=== PATIENT | female | born 1950 ===

== ENCOUNTER 2017-03-27 10:05 | Day surgery (SDC) | payer MEDICARE, MEDICAID ==
[2017-03-19 12:17] VITALS: BMI 29.7
[2017-03-27] MEDS ORDERED: Midazolam 2 MG/2 ML VIAL ONE ×3 (13:33→13:57)
[2017-03-27] MEDS ORDERED: Lidocaine 2% Inj (20ml) ONE (13:33)
[2017-03-27] MEDS ORDERED: Iodixanol 320 MG/ML 200 ML BOTTLE IV ONE (13:34)
[2017-03-27] MEDS ORDERED: Iodixanol 320 MG/ML 100 ML BOTTLE IV ONE (13:35)
[2017-03-27] MEDS ORDERED: Propofol 10 mg/ml Inj (20 ML) ONE ×2 (13:59→14:47)
[2017-03-27] MEDS ORDERED: Ketamine 50 mg/ml Inj (10 ml) ONE (14:17)
[2017-03-27] MEDS ORDERED: Albuterol 0.083% Inhal Sol (2.5 mg/3 mL) UD INH PRN (15:18)
--- NOTE | 2017-03-27 15:19 | PCM.SURG1 ---
Surgeon's Initial Post Op Note - Surgeon's Notes Surgeon: Dr. Brooke Insurance Compliance Analyst: Chris PGY1 Type of Anesthesia: IV Sedation Pre-Operative Diagnosis: Peripheral artery Disease Operative Findings: see operative report Post-Operative Diagnosis: Peripheral Artery Disease Operation Performed: Aortofemoral Angiogram with bilateral run-off, selective catheterization of right femoral artery, pathway artherectomy, and drug coated balloon angioplasty Specimen/Specimens Removed: N/A Estimated Blood Loss: EBL {In ML}: 20 Blood Products Given: N/A Drains Used: No Drains Post-Op Condition: Good Date of Surgery/Procedure: 03/27/17 Time of Surgery/Procedure: 15:19
[2017-03-27 17:29] VITALS: BP 137/59; PULSE 94; RESP 14; TEMP 97.5; O2SAT 97
--- NOTE | 2017-03-28 09:15 | VAS ---
PROCEDURE DATE: 03/27/2017 PREOPERATIVE DIAGNOSIS: Claudication, right leg. POSTOPERATIVE DIAGNOSIS: Claudication, right leg. PROCEDURE CARRIED OUT: Aorto femoral angiogram with bilateral runoff with selective catheterization of right femoral artery, pathway atherectomy of right femoral artery and balloon angioplasty using Lutonix drug coated balloon, 4 mm. SURGEON: Bean Brooke Jr., MD MEDIA MARKETING SPECIALIST: None. ANESTHESIOLOGIST: Allyn Ayoub CRNA INDICATIONS: A 67-year-old woman with history of previous stents in the left leg presenting with increasing claudication in the right leg. OPERATIVE FINDINGS: The aorta and renal arteries are free of significant occlusive disease, both common external iliac and internal iliac arteries were widely patent; although, somewhat small and some diffused narrowing in the left common iliac artery. Below this, the common femoral arteries were widely patent. The superficial femoral arteries were widely patent in their proximal segment in the left side, the multiple stents were placed in the left superficial femoral artery which were patent. Below this, there was a good runoff via three vessels into the foot. On the right side, there was a similar pattern, but a high grade 90% stenosis at approximately 3 inches below the bifurcation of the superficial femoral artery and the profunda. There was also a slightly erratic period above Mil's canal. Subsequent to the performance of the diagnostic arteriogram, a stiff-angled Glidewire was advanced over the aortic bifurcation. Patient was heparinized after the lesion was crossed and a peripheral atherectomy device was used to atherectomize the proximal portion of the superficial femoral artery. The distal abnormality was not treated. Subsequently, a 4 mm balloon was deployed here at two locations and there is residual brisk flow, slight element of dissection to the large size of the balloon due to the vessel but otherwise brisk flow with good runoff. Again, there is 3-vessel runoff below this. Subsequent to the performance of the diagnostic arteriogram, the above-mentioned procedure was carried out. A Perclose device was deployed in the left groin and there is still good perfusion distally after this deployment. OPERATION CARRIED OUT: 1. Aorto femoral angiogram with selective catheterization of right femoral artery. 2. Pathway atherectomy and drug-coated balloon angioplasty using 4-mm balloon of the proximal superficial femoral artery. Bean Brooke Jr., MD
== END 2017-03-27 17:35 | disposition home or self-care (01) ==
LOC: C.SPRAD 10:05
PROVIDERS: ATTEND Surgery Vascular Surgery
DX: I70.218 Atherosclerosis of native arteries of extremities with intermittent claudication, other extremity (principal)
CPT/HCPCS: 36247; 37225; 75625; 75716; 75774; 82948; C1724; C1760; C1766; C1769; C1887; C1894; J1644; J2250; J2704; J3010; Q9966; Q9967

== ENCOUNTER 2017-12-22 11:46 | Inpatient (IN) | payer MEDICARE, MEDICAID ==
[2017-12-22 11:46] VITALS: BMI 29.7
[2017-12-22] MEDS ORDERED: Sodium Chloride 0.9% 1,000 ML IV ONE (12:21)
[2017-12-22 12:37] LABS: BASO # 0.1 K/uL (0.0-0.2); BASO % 1.4 % (0.0-2.0); EOS # 0.1 K/uL (0.0-0.7); EOS % 0.9 % (0.0-4.0); LYMPH # 1.8 K/uL (1.0-4.3); MEAN CORPUSCULAR HEMOGLOBIN 20.7 pg (27.0-31.0); MEAN CORPUSCULAR HGB CONC 31.1 g/dL (33.0-37.0); MEAN PLATELET VOLUME 7.3 fL (7.2-11.7); MONO # 0.5 K/uL (0.0-0.8); MONO % 5.9 % (0.0-10.0); NEUT # 5.8 K/uL (1.8-7.0); NEUT % 69.8 % (50.0-75.0); NRBC % 0.1 % (0.0-2.0); RBC 3.12 Mil/uL (3.80-5.20); WHITE BLOOD COUNT 8.2 K/uL (4.8-10.8)
--- NOTE | 2017-12-22 12:41 | C.PDOC ---
History Of Present Illness 67 year old female presents to the ED after being sent by her PMD for evaluation of abnormal labs. Patient states she received a call stating that her labs show low hemoglobin level of 5 g/dL. Patient reports history of anemia and states she takes iron supplements. Patient admits to feeling weak, tired and easily fatigued. She also reports constipation (due to taking iron supplements) and states her last bowel movement was yesterday. Patient reports history of arthritis and states she gets occasional joint pain. Patient denies fever, chills. Time Seen by Provider: 12/22/17 12:02 Chief Complaint (Nursing): Abnormal Labs History Per: Patient History/Exam Limitations: no limitations Onset/Duration Of Symptoms: Hrs Current Symptoms Are (Timing): Still Present Additional History Per: Patient Past Medical History Reviewed: Historical Data, Nursing Documentation, Vital Signs Vital Signs: Last Vital Signs Temp 97.9 F 12/22/17 14:19 Pulse 92 H 12/22/17 14:19 Resp 18 12/22/17 14:19 BP 105/57 L 12/22/17 14:19 Pulse Ox 97 12/22/17 14:19 - Medical History PMH: Anemia, Asthma, Cardia Arrhythmia, Colonic Polyps, Gall Bladder Disease, HTN, Hypercholesterolemia, Hypothyroidism, Peripheral Edema, Rheumatoid Arthritis Surgical History: Appendectomy, Endoscopy - [facility] Procedures ANGIOPLASTY OF OTHER NON-CORONARY VESSEL(S) (03/04/14) ATHERECTOMY OF OTHER NON-CORONARY VESSEL(S) (03/04/14) INJECT/INFUSE NEC (07/14/13) NEBULIZER THERAPY (07/14/13) PROCEDURE ON SINGLE VESSEL (03/04/14) Family History: States: Unknown Family Hx - Social History Hx Alcohol Use: No Hx Substance Use: No - Immunization History Hx Influenza Vaccination: Yes Hx Pneumococcal Vaccination: No Review Of Systems Constitutional: Positive for: Weakness, Other (tired, easily fatigued, low hemoglobin level ). Negative for: Fever, Chills Physical Exam - Physical Exam Appears: Non-toxic, No Acute Distress Skin: Warm, Dry, Pale, No Rash Head: Atraumatic, Normacephalic Eye(s): bilateral: Normal Inspection, EOMI Oral Mucosa: Moist Neck: Supple Chest: Symmetrical, No Deformity, No Tenderness Cardiovascular: Rhythm Regular (tachycardic), No Murmur Respiratory: Normal Breath Sounds, No Rales, No Rhonchi, No Wheezing Gastrointestinal/Abdominal: Soft, No Tenderness, No Guarding, No Rebound Extremity: Normal ROM, Capillary Refill (less than 2 seconds ) Neurological/Psych: Oriented x3, Normal Speech Gait: Steady ED Course And Treatment - Laboratory Results Result Diagrams: 12/22/17 12:33 12/22/17 12:33 Lab Interpretation: No Acute Changes ECG: Interpreted By Me, Viewed By Me ECG Rhythm: Sinus Rhythm Rate From EC O2 Sat by Pulse Oximetry: 98 (on RA) Pulse Ox Interpretation: Normal Medical Decision Making Medical Decision Making: Impression: 67 year old female with low hemoglobin level, weakness Plan: * bloodwork * urinalysis * IV Fluids Progress: Bloodwork and urinalysis ordered. Patient given IV Fluids. 1250: Patient's lab results show hemoglobin level of 6.5 g/dL. I discussed this result with the patient and she verbalizes understanding. I discussed plan for blood transfusion with patient. She understands this treatment, but chooses to decline and does not want blood products at this time. Plan is to give IV Ferrlecit and observe patient. She agrees with admission 1325 Spoke with medicine organisational psychologist Dr Borja to discuss case and accepted patient to service Disposition - Disposition Disposition Time: 13:30 Condition: STABLE - POA Present On Arrival: None - Clinical Impression Clinical Impression: Anemia - PA / AUTOMOBILE RENTAL CLERK / Resident Statement MD/DO has reviewed & agrees with the documentation as recorded. - Scribe Statement The provider has reviewed the documentation as recorded by the Scribe (Jennifer Rosen) All medical record entries made by the Scribe were at my direction and personally dictated by me. I have reviewed the chart and agree that the record accurately reflects my personal performance of the history, physical exam, medical decision making, and the department course for this patient. I have also personally directed, reviewed, and agree with the discharge instructions and disposition. Decision To Admit - Pt Status Changed To: Hospital Disposition Of: Observation - . Bed Request Type: Telemetry Admitting Physician: Alisa Borja Patient Diagnosis: Anemia
[2017-12-22 12:42] LABS: HEMOGLOBIN 6.5 g/dL (11.0-16.0)
[2017-12-22 12:43] LABS: MEAN CELL VOLUME 66.6 fL (81.0-99.0)
[2017-12-22 12:49] LABS: ALB/GLOB RATIO 1.4 (1.0-2.1); ALBUMIN 4.2 g/dL (3.5-5.0); ALT/SGPT 29 U/L (9-52); AST/SGOT 26 U/L (14-36); BLOOD UREA NITROGEN 9 mg/dL (7-17); CALCIUM 8.5 mg/dl (8.6-10.4); GFR AFRICAN-AMERICAN > 60; GFR NON-AFRICAN AMERICAN > 60
[2017-12-22 12:50] LABS: PROTHROMBIN TIME 11.3 SECONDS (9.7-12.2)
[2017-12-22] MEDS ORDERED: Ferric Sodium Gluconat Complex 62.5 mg/5 ml Vial IVPB STA (13:00)
[2017-12-22] MEDS ORDERED: Sodium Chloride 0.9% 1,000 ML ONE (13:29)
[2017-12-22 14:20] LABS: IRON 98 ug/dL (37-170)
[2017-12-22 14:29] LABS: % IRON SATURATION 19 (20-55); TOTAL IRON BINDING CAPACITY 512 ug/dL (250-450)
[2017-12-22 15:05] LABS: SQUAMOUS EPITHIAL < 1 /hpf (0-5); URINE BILIRUBIN NEGATIVE (NEGATIVE); URINE BLOOD NEGATIVE (NEGATIVE); URINE CLARITY Clear (Clear); URINE COLOR Straw (YELLOW); URINE GLUCOSE (UA) NORMAL (Normal); URINE LEUKOCYTE ESTERASE TRACE Leu/uL (Negative); URINE PROTEIN NEGATIVE (NEGATIVE); URINE UROBILINOGEN NORMAL mg/dL (0.2-1.0)
[2017-12-22] MEDS: (Novolin R) Insulin Human Regular 100 units/ml vial SC SCH ×2 (16:52→22:40)
[2017-12-22] MEDS: Hydrocortisone 2.5% Rectal Cream(30 gm) PR SCH (17:00)
[2017-12-22] MEDS ORDERED: CYCLOSPORINE OU SCH (18:00)
[2017-12-22] MEDS ORDERED: Albuterol 0.042% Inhal Sol (1.25 mg/3 mL) UD INH SCH (18:00)
[2017-12-22] MEDS: Cilostazol 100 mg Tab UD PO SCH (18:15)
[2017-12-22] MEDS: Albuterol 0.042% Inhal Sol (1.25 mg/3 mL) UD INH SCH (20:05)
[2017-12-22] MEDS ORDERED: Home Med 1 UNIT PO SCH ×2 (21:00)
[2017-12-23] MEDS: Levothyroxine 125 MCG TAB PO SCH ×2 (06:30→10:12)
[2017-12-23] MEDS: Albuterol 0.042% Inhal Sol (1.25 mg/3 mL) UD INH SCH (07:46)
[2017-12-23] MEDS: (Novolin R) Insulin Human Regular 100 units/ml vial SC SCH ×4 (07:59→21:35)
[2017-12-23] MEDS ORDERED: Pantoprazole 40 mg EC Tab PO SCH (10:00)
[2017-12-23] MEDS: Insulin Detemir 100 units/ml Vial (Levemir) SC SCH (10:08)
[2017-12-23] MEDS: Fluticasone Nasal 50 mcg/Spray NAS SCH (10:09)
[2017-12-23] MEDS: Ferric Sodium Gluconat Complex 62.5 mg/5 ml Vial IVPB SCH (10:09)
[2017-12-23] MEDS: Hydrocortisone 2.5% Rectal Cream(30 gm) PR SCH ×2 (10:10→17:45)
[2017-12-23] MEDS: Cilostazol 100 mg Tab UD PO SCH ×2 (10:45→17:43)
--- NOTE | 2017-12-23 11:15 | CP.PCM.CON ---
<Dee Dee Gentile - Last Filed: 12/23/17 11:17> History of Present Illness - History of Present Illness History of Present Illness: GI Fellow PGY4 Consult Note This is a 67 year old female with pmhx of PAD s/p angioplasty on plavix and pletal, iron deficinecy anemia on po iron, HTN, HLD presents to the ED after being sent by her PMD for evaluation of abnormal labs. Patient states she received a call stating that her labs showed low hemoglobin level of 5 g/dL. Patient reports history of anemia and states she takes iron supplements. She denies any prior transfusions and never a Hgb this low. Patient admits to feeling weak, tired and easily fatigued. She also reports constipation due to taking iron supplements and states her last bowel movement was yesterday. Patient reports history of arthritis and states she gets occasional joint pain for which she takes NSAID once a week. In the ER pts Hgb was 6.5 and pt refused blood transfusion due to concern for contamination/infection with blood products. She denies any active rectal bleeding or prior GI bleed hx. She does report hx of EGD/Colonoscopy many years ago at [facility] [place] and found to have polyps. ROS: A 12pt ROS was negative except as above PmHX: As stated n [facility] PsHX: Appendectomy, PAD with angioplasty FHx: Neg for colon cancer SHX: Denies etoh, drugs, tobacco Past Patient History - Past Medical History & Family History Past Medical History?: Yes - Past Social History Smoking Status: Heavy Smoker > 10 Cigarettes Daily - CARDIAC Hx Cardia Arrhythmia: Yes Hx Hypercholesterolemia: Yes Hx Hypertension: Yes Hx Peripheral Edema: Yes - PULMONARY Hx Asthma: Yes - NEUROLOGICAL Hx Neurological Disorder: Yes Other/Comment: PERIPHERAL NEUROPATHY - HEENT Hx HEENT Problems: Yes (GLASSES) - RENAL Hx Chronic Kidney Disease: No - ENDOCRINE/METABOLIC Hx Hypothyroidism: Yes - HEMATOLOGICAL/ONCOLOGICAL Hx Anemia: Yes - INTEGUMENTARY Hx Dermatological Problems: Yes Other/Comment: PRURITIS - MUSCULOSKELETAL/RHEUMATOLOGICAL Hx Rheumatoid Arthritis: Yes - GASTROINTESTINAL Hx Gall Bladder Disease: Yes - GENITOURINARY/GYNECOLOGICAL Hx Genitourinary Disorders: No - PSYCHIATRIC Hx Substance Use: No - SURGICAL HISTORY Hx Appendectomy: Yes - ANESTHESIA Hx Anesthesia: Yes Hx Anesthesia Reactions: No Hx Malignant Hyperthermia: No Meds Allergies/Adverse Reactions: Allergies Allergy/AdvReac Type Severity Reaction Status Date / Time No Known Allergies Allergy Verified 12/22/17 11:55 - Medications Medications: Current Medications Acetaminophen (Tylenol 325mg Tab) 650 mg PO Q6 PRN PRN Reason: Pain, severe (8-10) Albuterol Sulfate (Albuterol 0.042% Inhal Chiquita (1.25mg/3ml) Ud) 1.25 mg INH RQ6 [facility] Last Admin: 12/23/17 07:46 Dose: 1.25 mg Bisacodyl (Dulcolax) 10 mg PO ONCE ONE Stop: 12/23/17 20:01 Cilostazol (Pletal) 100 mg PO BID [facility] Last Admin: 12/22/17 18:15 Dose: 100 mg Cyanocobalamin (Vitamin B12 1000 Mcg/Ml Inj) 1,000 mcg IM DAILY [facility] Stop: 12/26/17 10:00 Ferric Sodium Gluconate Complex (Ferrlecit) 125 mg IVPB DAILY [facility] Stop: 12/28/17 10:01 Last Admin: 12/23/17 10:09 Dose: 125 mg Fluticasone Propionate (Flonase) 2 spr NAILA DAILY [facility] Last Admin: 12/23/17 10:09 Dose: 2 spr Folic Acid (Folic Acid) 1 mg PO DAILY [facility] Last Admin: 12/23/17 10:08 Dose: 1 mg Gabapentin (Neurontin) 300 mg PO QID [facility] Last Admin: 12/23/17 10:08 Dose: 300 mg Home Med (Cyclosporine [Restasis]) 1 drop OU BID [facility] Home Med (Ursodiol [Ursodiol]) 250 mg PO QID [facility] Hydrocortisone (Anusol-Hc) 0 gm CA BID [facility] Last Admin: 12/23/17 10:10 Dose: 1 applic Insulin Detemir (Levemir) 10 unit SC DAILY [facility] Last Admin: 12/23/17 10:08 Dose: 10 u Insulin Human Regular (Novolin R) 0 unit SC ACHS [facility] PRN Reason: Protocol Last Admin: 12/23/17 07:59 Dose: Not Given Levothyroxine Sodium (Synthroid) 125 mcg PO DAILY [facility] Last Admin: 12/23/17 10:12 Dose: Not Given Losartan Potassium (Cozaar) 100 mg PO DAILY [facility] Last Admin: 12/23/17 10:14 Dose: Not Given Metformin HCl (Glucophage) 1,000 mg PO BID [facility] Last Admin: 12/23/17 10:08 Dose: 1,000 mg Montelukast Sodium (Singulair) 10 mg PO DAILY [facility] Last Admin: 12/23/17 10:08 Dose: 10 mg Pantoprazole Sodium (Protonix Ec Tab) 40 mg PO 0730 [facility] Last Admin: 12/23/17 10:08 Dose: 40 mg Polyethylene Glycol/Electrolytes (Golytely) 4,000 ml PO ONCE ONE Stop: 12/23/17 13:01 Rosuvastatin Calcium (Crestor) 40 mg PO DAILY [facility] Last Admin: 12/23/17 10:08 Dose: 40 mg Physical Exam - Constitutional Appears: Non-toxic, No Acute Distress - Head Exam Head Exam: ATRAUMATIC, NORMAL INSPECTION, NORMOCEPHALIC - Eye Exam Eye Exam: EOMI, Normal appearance, PERRL Pupil Exam: PERRL - ENT Exam ENT Exam: Mucous Membranes Moist - Neck Exam Neck exam: Positive for: Normal Inspection - Respiratory Exam Respiratory Exam: Clear to Auscultation Bilateral, NORMAL BREATHING PATTERN - Cardiovascular Exam Cardiovascular Exam: REGULAR RHYTHM, +S1, +S2 - GI/Abdominal Exam GI & Abdominal Exam: Normal Bowel Sounds, Soft. absent: Distended, Organomegaly , Tenderness - Rectal Exam Rectal Exam: NORMAL INSPECTION. absent: Black Stool, Bloody Stool, Hemorrhoids Additional comments: brown stool - Extremities Exam Extremities exam: Positive for: full ROM, normal inspection - Back Exam Back exam: NORMAL INSPECTION - Neurological Exam Neurological exam: Alert, Oriented x3 - Psychiatric Exam Psychiatric exam: Normal Affect, Normal Mood - Skin Skin Exam: Dry, Intact, Normal Color, Warm Results - Vital Signs Recent Vital Signs: Last Vital Signs Temp 97.6 F 12/23/17 07:37 Pulse 89 12/23/17 07:37 Resp 20 12/23/17 07:37 BP 107/65 12/23/17 07:37 Pulse Ox 96 12/23/17 07:37 - Labs Result Diagrams: 12/22/17 12:33 12/22/17 12:33 Labs: Laboratory Results - last 24 hr 12/22/17 12/22/17 12/22/17 12:33 12:33 12:33 WBC 8.2 RBC 3.12 L Hgb 6.5 L* D Hct 20.8 L MCV 66.6 L D MCH 20.7 L MCHC 31.1 L RDW 19.0 H Plt Count 467 H D MPV 7.3 Neut % (Auto) 69.8 Lymph % (Auto) 22.0 [place] % (Auto) 5.9 Eos % (Auto) 0.9 Baso % (Auto) 1.4 Neut # (Auto) 5.8 Lymph # (Auto) 1.8 [place] # (Auto) 0.5 Eos # (Auto) 0.1 Baso # (Auto) 0.1 Differential Comment PT 11.3 INR 1.0 APTT 34 Sodium 132 Potassium 4.4 Chloride 97 L Carbon Dioxide 24 Anion Gap 15 BUN 9 Creatinine 0.7 Est GFR ( Amer) > 60 Est GFR (Non-Af Amer) > 60 POC Glucose (mg/dL) Random Glucose 195 H Calcium 8.5 L Iron TIBC % Saturation Total Bilirubin 0.4 AST 26 ALT 29 Alkaline Phosphatase 77 Total Protein 7.3 Albumin 4.2 Globulin 3.1 Albumin/Globulin Ratio 1.4 Urine Color Urine Clarity Urine pH Ur Specific [place] Urine Protein Urine Glucose (UA) Urine Ketones Urine Blood Urine Nitrate Urine Bilirubin Urine Urobilinogen Ur Leukocyte Esterase Urine RBC (Auto) Ur Squamous Epith Cells Blood Type Antibody Screen 12/22/17 12/22/17 12/22/17 12:33 14:11 14:53 WBC RBC Hgb Hct MCV MCH MCHC RDW Plt Count MPV Neut % (Auto) Lymph % (Auto) [place] % (Auto) Eos % (Auto) Baso % (Auto) Neut # (Auto) Lymph # (Auto) [place] # (Auto) Eos # (Auto) Baso # (Auto) Differential Comment PT INR APTT Sodium Potassium Chloride Carbon Dioxide Anion Gap BUN Creatinine Est GFR ( Amer) Est GFR (Non-Af Amer) POC Glucose (mg/dL) Random Glucose Calcium Iron 98 TIBC 512 H % Saturation 19 L Total Bilirubin AST ALT Alkaline Phosphatase Total Protein Albumin Globulin Albumin/Globulin Ratio Urine Color Straw Urine Clarity Clear Urine pH 6.0 Ur Specific [place] 1.002 L Urine Protein Negative Urine Glucose (UA) Normal Urine Ketones Negative Urine Blood Negative Urine Nitrate Negative Urine Bilirubin Negative Urine Urobilinogen Normal Ur Leukocyte Esterase Trace Urine RBC (Auto) < 1 Ur Squamous Epith Cells < 1 Blood Type O POSITIVE Antibody Screen Negative 12/22/17 12/22/17 16:01 21:20 WBC RBC Hgb Hct MCV MCH MCHC RDW Plt Count MPV Neut % (Auto) Lymph % (Auto) [place] % (Auto) Eos % (Auto) Baso % (Auto) Neut # (Auto) Lymph # (Auto) [place] # (Auto) Eos # (Auto) Baso # (Auto) Differential Comment PT INR APTT Sodium Potassium Chloride Carbon Dioxide Anion Gap BUN Creatinine Est GFR ( Amer) Est GFR (Non-Af Amer) POC Glucose (mg/dL) 127 H 100 Random Glucose Calcium Iron TIBC % Saturation Total Bilirubin AST ALT Alkaline Phosphatase Total Protein Albumin Globulin Albumin/Globulin Ratio Urine Color Urine Clarity Urine pH Ur Specific [place] Urine Protein Urine Glucose (UA) Urine Ketones Urine Blood Urine Nitrate Urine Bilirubin Urine Urobilinogen Ur Leukocyte Esterase Urine RBC (Auto) Ur Squamous Epith Cells Blood Type Antibody Screen Assessment & Plan - Assessment and Plan (Free Text) Assessment: This is a 67yF with pmhx of Anemia, HTN, HLD, PAD on pletal and plavix presenting with anemia. 1. Acute Anemia, iron deficiency 2. PAD s/p angioplasty on antiplatelet therapy Plan: -Continue supportive care -Hgb 6.5 with pt refusing transfusion due to concerns about contamination, discussed with pt in detail risks and benefits and she is now agreeable to 2 U PRBCs -No active GI bleeding at this time, rectal exam with brown stool -Monitor H/H and transfuse as needed -IV PPI BID -Clear liquid diet -NPO after midnight -Bowel prep with Golytely and dulcolax -Plan for diagnostic EGD/Colonoscopy tomorrow -Discussed with Dr. Borja -Will continue to follow closely <Isadora Clemente - Last Filed: 12/23/17 11:28> Meds - Medications Medications: Current Medications Acetaminophen (Tylenol 325mg Tab) 650 mg PO Q6 PRN PRN Reason: Pain, severe (8-10) Albuterol Sulfate (Albuterol 0.042% Inhal Chiquita (1.25mg/3ml) Ud) 1.25 mg INH RQ6 [facility] Last Admin: 12/23/17 07:46 Dose: 1.25 mg Bisacodyl (Dulcolax) 10 mg PO ONCE ONE Stop: 12/23/17 20:01 Cilostazol (Pletal) 100 mg PO BID [facility] Last Admin: 12/22/17 18:15 Dose: 100 mg Cyanocobalamin (Vitamin B12 1000 Mcg/Ml Inj) 1,000 mcg IM DAILY [facility] Stop: 12/26/17 10:00 Ferric Sodium Gluconate Complex (Ferrlecit) 125 mg IVPB DAILY [facility] Stop: 12/28/17 10:01 Last Admin: 12/23/17 10:09 Dose: 125 mg Fluticasone Propionate (Flonase) 2 spr NAILA DAILY [facility] Last Admin: 12/23/17 10:09 Dose: 2 spr Folic Acid (Folic Acid) 1 mg PO DAILY [facility] Last Admin: 12/23/17 10:08 Dose: 1 mg Gabapentin (Neurontin) 300 mg PO QID [facility] Last Admin: 12/23/17 10:08 Dose: 300 mg Home Med (Cyclosporine [Restasis]) 1 drop OU BID [facility] Home Med (Ursodiol [Ursodiol]) 250 mg PO QID [facility] Hydrocortisone (Anusol-Hc) 0 gm CA BID [facility] Last Admin: 12/23/17 10:10 Dose: 1 applic Insulin Detemir (Levemir) 10 unit SC DAILY [facility] Last Admin: 12/23/17 10:08 Dose: 10 u Insulin Human Regular (Novolin R) 0 unit SC [facility] PRN Reason: Protocol Last Admin: 12/23/17 07:59 Dose: Not Given Levothyroxine Sodium (Synthroid) 125 mcg PO DAILY [facility] Last Admin: 12/23/17 10:12 Dose: Not Given Losartan Potassium (Cozaar) 100 mg PO DAILY [facility] Last Admin: 12/23/17 10:14 Dose: Not Given Metformin HCl (Glucophage) 1,000 mg PO BID [facility] Last Admin: 12/23/17 10:08 Dose: 1,000 mg Montelukast Sodium (Singulair) 10 mg PO DAILY [facility] Last Admin: 12/23/17 10:08 Dose: 10 mg Pantoprazole Sodium (Protonix Inj) 40 mg IVP Q12H [facility] Polyethylene Glycol/Electrolytes (Golytely) 4,000 ml PO ONCE ONE Stop: 12/23/17 13:01 Rosuvastatin Calcium (Crestor) 40 mg PO DAILY [facility] Last Admin: 12/23/17 10:08 Dose: 40 mg Results - Vital Signs Recent Vital Signs: Last Vital Signs Temp 97.6 F 12/23/17 07:37 Pulse 89 12/23/17 07:37 Resp 20 12/23/17 07:37 BP 107/65 12/23/17 07:37 Pulse Ox 96 12/23/17 07:37 - Labs Result Diagrams: 12/22/17 12:33 12/22/17 12:33 Labs: Laboratory Results - last 24 hr 12/22/17 12/22/17 12/22/17 12:33 12:33 12:33 WBC 8.2 RBC 3.12 L Hgb 6.5 L* D Hct 20.8 L MCV 66.6 L D MCH 20.7 L MCHC 31.1 L RDW 19.0 H Plt Count 467 H D MPV 7.3 Neut % (Auto) 69.8 Lymph % (Auto) 22.0 [place] % (Auto) 5.9 Eos % (Auto) 0.9 Baso % (Auto) 1.4 Neut # (Auto) 5.8 Lymph # (Auto) 1.8 [place] # (Auto) 0.5 Eos # (Auto) 0.1 Baso # (Auto) 0.1 Differential Comment PT 11.3 INR 1.0 APTT 34 Sodium 132 Potassium 4.4 Chloride 97 L Carbon Dioxide 24 Anion Gap 15 BUN 9 Creatinine 0.7 Est GFR ( Amer) > 60 Est GFR (Non-Af Amer) > 60 POC Glucose (mg/dL) Random Glucose 195 H Calcium 8.5 L Iron TIBC % Saturation Total Bilirubin 0.4 AST 26 ALT 29 Alkaline Phosphatase 77 Total Protein 7.3 Albumin 4.2 Globulin 3.1 Albumin/Globulin Ratio 1.4 Urine Color Urine Clarity Urine pH Ur Specific [place] Urine Protein Urine Glucose (UA) Urine Ketones Urine Blood Urine Nitrate Urine Bilirubin Urine Urobilinogen Ur Leukocyte Esterase Urine RBC (Auto) Ur Squamous Epith Cells Blood Type Antibody Screen 12/22/17 12/22/17 12/22/17 12:33 14:11 14:53 WBC RBC Hgb Hct MCV MCH MCHC RDW Plt Count MPV Neut % (Auto) Lymph % (Auto) [place] % (Auto) Eos % (Auto) Baso % (Auto) Neut # (Auto) Lymph # (Auto) [place] # (Auto) Eos # (Auto) Baso # (Auto) Differential Comment PT INR APTT Sodium Potassium Chloride Carbon Dioxide Anion Gap BUN Creatinine Est GFR ( Amer) Est GFR (Non-Af Amer) POC Glucose (mg/dL) Random Glucose Calcium Iron 98 TIBC 512 H % Saturation 19 L Total Bilirubin AST ALT Alkaline Phosphatase Total Protein Albumin Globulin Albumin/Globulin Ratio Urine Color Straw Urine Clarity Clear Urine pH 6.0 Ur Specific [place] 1.002 L Urine Protein Negative Urine Glucose (UA) Normal Urine Ketones Negative Urine Blood Negative Urine Nitrate Negative Urine Bilirubin Negative Urine Urobilinogen Normal Ur Leukocyte Esterase Trace Urine RBC (Auto) < 1 Ur Squamous Epith Cells < 1 Blood Type O POSITIVE Antibody Screen Negative 12/22/17 12/22/17 16:01 21:20 WBC RBC Hgb Hct MCV MCH MCHC RDW Plt Count MPV Neut % (Auto) Lymph % (Auto) [place] % (Auto) Eos % (Auto) Baso % (Auto) Neut # (Auto) Lymph # (Auto) [place] # (Auto) Eos # (Auto) Baso # (Auto) Differential Comment PT INR APTT Sodium Potassium Chloride Carbon Dioxide Anion Gap BUN Creatinine Est GFR ( Amer) Est GFR (Non-Af Amer) POC Glucose (mg/dL) 127 H 100 Random Glucose Calcium Iron TIBC % Saturation Total Bilirubin AST ALT Alkaline Phosphatase Total Protein Albumin Globulin Albumin/Globulin Ratio Urine Color Urine Clarity Urine pH Ur Specific [place] Urine Protein Urine Glucose (UA) Urine Ketones Urine Blood Urine Nitrate Urine Bilirubin Urine Urobilinogen Ur Leukocyte Esterase Urine RBC (Auto) Ur Squamous Epith Cells Blood Type Antibody Screen Attending/Attestation - Attestation I have personally seen and examined this patient.: Yes I have fully participated in the care of the patient.: Yes I have reviewed all pertinent clinical information: Yes Notes (Text): 12/23/17 11:27 This is a 67 yr old F with pmhx of Anemia, HTN, HLD, PAD on pletal and plavix presenting with anemia with drop in hb but brown stool. No active GI bleeding. Will give 2 units PRBC and plan for diagnostic EGD/ colonoscopy as she is on plavix. Clear liquid diet and NPO after midnight. Bowel prep with Golytely and dulcolax -Discussed with Dr. Borja -Will continue to follow closely
[2017-12-23] MEDS ORDERED: Peg-Electrolyte Oral Soln 4L (Golytely) PO ONE (13:00)
[2017-12-23] MEDS: Albuterol 0.042% Inhal Sol (1.25 mg/3 mL) UD INH PRN ×2 (13:42→19:47)
[2017-12-23] MEDS: Budesonide 0.25 mg/2 ml Inhal Susp UD INH SCH ×2 (16:00→19:47)
[2017-12-23] MEDS ORDERED: Bisacodyl 5mg EC Tab PO ONE (20:00)
--- NOTE | 2017-12-23 23:32 | CP.PCM.HP ---
History of Present Illness - History of Present Illness History of Present Illness: a 67 year old female with pmhx of PAD s/p angioplasty on plavix and pletal, iron deficinecy anemia on po iron, HTN, HLD presents to the ED after being sent by her PMD for evaluation of abnormal labs. Patient states she received a call stating that her labs showed low hemoglobin level of 5 g/dL. Patient reports history of anemia and states she takes iron supplements. She denies any prior transfusions and never a Hgb this low. Patient admits to feeling weak, tired and easily fatigued. She also reports constipation due to taking iron supplements and states her last bowel movement was yesterday. Patient reports history of arthritis and states she gets occasional joint pain for which she takes NSAID once a week. In the ER pts Hgb was 6.5 and pt refused blood transfusion due to concern for contamination/infection with blood products. She denies any active rectal bleeding or prior GI bleed hx. She does report hx of [place] [facility] [place] found to have [place]. Present on Admission - Present on Admission Any Indicators Present on Admission: Yes Review of Systems - Constitutional Constitutional: As Per HPI - EENT Eyes: As Per HPI Ears: As Per HPI Nose/Mouth/Throat: Nasal Congestion - Breasts Breasts: As Per HPI - Cardiovascular Cardiovascular: As Per HPI - Respiratory Respiratory: Cough, Wheezing - Gastrointestinal Gastrointestinal: Belching - Neurological Neurological: As Per HPI - Psychiatric Psychiatric: As Per HPI - Endocrine Endocrine: As Per HPI - Hematologic/Lymphatic Hematologic: As Per HPI Past Patient History - Past Medical History & Family History Past Medical History?: Yes - Past Social History Smoking Status: Heavy Smoker > 10 Cigarettes Daily - CARDIAC Hx Cardia Arrhythmia: Yes Hx Hypercholesterolemia: Yes Hx Hypertension: Yes Hx Peripheral Edema: Yes - PULMONARY Hx Asthma: Yes - NEUROLOGICAL Hx Neurological Disorder: Yes Other/Comment: PERIPHERAL NEUROPATHY - HEENT Hx HEENT Problems: Yes (GLASSES) - RENAL Hx Chronic Kidney Disease: No - ENDOCRINE/METABOLIC Hx Hypothyroidism: Yes - HEMATOLOGICAL/ONCOLOGICAL Hx Anemia: Yes - INTEGUMENTARY Hx Dermatological Problems: Yes Other/Comment: PRURITIS - MUSCULOSKELETAL/RHEUMATOLOGICAL Hx Rheumatoid Arthritis: Yes - GASTROINTESTINAL Hx Gall Bladder Disease: Yes - GENITOURINARY/GYNECOLOGICAL Hx Genitourinary Disorders: No - PSYCHIATRIC Hx Substance Use: No - SURGICAL HISTORY Hx Appendectomy: Yes - ANESTHESIA Hx Anesthesia: Yes Hx Anesthesia Reactions: No Hx Malignant Hyperthermia: No Meds Allergies/Adverse Reactions: Allergies Allergy/AdvReac Type Severity Reaction Status Date / Time No Known Allergies Allergy Verified 12/22/17 11:55 Physical Exam - Constitutional Appears: Well - Head Exam Head Exam: ATRAUMATIC, NORMAL INSPECTION, NORMOCEPHALIC - Eye Exam Eye Exam: EOMI, Normal appearance, PERRL Pupil Exam: NORMAL ACCOMODATION - ENT Exam ENT Exam: Mucous Membranes Moist, Normal Exam, Normal Oropharynx - Neck Exam Neck exam: Positive for: Full Rom, Normal Inspection - Respiratory Exam Respiratory Exam: Decreased Breath Sounds, Wheezes - Cardiovascular Exam Cardiovascular Exam: REGULAR RHYTHM, +S1, +S2 - GI/Abdominal Exam GI & Abdominal Exam: Normal Bowel Sounds, Soft - Extremities Exam Extremities exam: Positive for: full ROM, normal capillary refill, normal inspection - Neurological Exam Neurological exam: Alert, CN II-XII Intact - Psychiatric Exam Psychiatric exam: Anxious - Skin Skin Exam: Intact, Normal Color Results - Vital Signs Recent Vital Signs: Last Vital Signs Temp 97.4 F L 12/23/17 22:22 Pulse 83 12/23/17 22:22 Resp 20 12/23/17 22:22 BP 132/70 12/23/17 22:22 Pulse Ox 100 12/23/17 17:57 - Labs Result Diagrams: 12/22/17 12:33 12/22/17 12:33 Labs: Laboratory Results - last 24 hr 12/22/17 12/23/17 12/23/17 12:33 07:00 11:22 POC Glucose (mg/dL) 102 122 H Blood Type O POSITIVE Antibody Screen Negative 12/23/17 12/23/17 12/23/17 16:34 16:35 21:28 POC Glucose (mg/dL) 69 71 141 H Blood Type Antibody Screen Assessment & Plan - Assessment and Plan (Free Text) Assessment: Assessment & Plan - Assessment and Plan (Free Text) Assessment: This is a 67yF with pmhx of Anemia, HTN, HLD, PAD on pletal and plavix presenting with anemia. 1. Acute Anemia, iron deficiency 2. PAD s/p angioplasty on antiplatelet therapy Plan: -Continue supportive care -Hgb 6.5 with pt refusing transfusion due to concerns about contamination, discussed with pt in detail risks and benefits and she is now agreeable to 2 U PRBCs -No active GI bleeding at this time, rectal exam with brown stool -Monitor H/H and transfuse as needed -IV PPI BID -Clear liquid diet -NPO after midnight -Bowel prep with Golytely and dulcolax -Plan for diagnostic EGD/Colonoscopy tomorrow -Discussed with gi -Will continue to follow closely d/d with pt , she understand the treatment plan - Date & Time Date: 12/23/17 Time: 13:30
[2017-12-24] MEDS: Levothyroxine 125 MCG TAB PO SCH ×2 (06:11→09:32)
[2017-12-24] MEDS: Budesonide 0.25 mg/2 ml Inhal Susp UD INH SCH ×2 (07:07→19:36)
[2017-12-24] MEDS: (Novolin R) Insulin Human Regular 100 units/ml vial SC SCH ×4 (07:52→21:45)
[2017-12-24] MEDS ORDERED: Simethicone 40 mg/0.6 ml Liquid (30 ml) ONE (08:01)
[2017-12-24] MEDS ORDERED: Propofol 10 mg/ml Inj (20 ML) ONE (08:16)
[2017-12-24] MEDS: Cilostazol 100 mg Tab UD PO SCH ×2 (10:32→17:16)
[2017-12-24] MEDS: Insulin Detemir 100 units/ml Vial (Levemir) SC SCH (10:36)
[2017-12-24] MEDS: Ferric Sodium Gluconat Complex 62.5 mg/5 ml Vial IVPB SCH (10:37)
[2017-12-24] MEDS: Hydrocortisone 2.5% Rectal Cream(30 gm) PR SCH ×2 (10:51→17:17)
[2017-12-24] MEDS: Fluticasone Nasal 50 mcg/Spray NAS SCH (10:51)
[2017-12-24 11:27] LABS: MEAN CORPUSCULAR HEMOGLOBIN 23.2 pg (27.0-31.0); MEAN CORPUSCULAR HGB CONC 32.3 g/dL (33.0-37.0); MEAN PLATELET VOLUME 7.4 fL (7.2-11.7); RBC 3.83 Mil/uL (3.80-5.20); RED CELL DISTRIBUTION WIDTH 22.7 % (11.5-14.5); WHITE BLOOD COUNT 7.9 K/uL (4.8-10.8)
[2017-12-24 11:28] LABS: HEMOGLOBIN 8.9 g/dL (11.0-16.0); MEAN CELL VOLUME 71.7 fL (81.0-99.0)
[2017-12-24 11:32] LABS: INR 1.1
[2017-12-24 11:42] LABS: HDL CHOLESTEROL 48 mg/dL (30-70); IRON 76 ug/dL (37-170)
[2017-12-24 11:46] LABS: ALB/GLOB RATIO 1.4 (1.0-2.1); ALT/SGPT 24 U/L (9-52); AST/SGOT 47 U/L (14-36); BLOOD UREA NITROGEN 3 mg/dL (7-17); GFR AFRICAN-AMERICAN > 60; GFR NON-AFRICAN AMERICAN > 60
[2017-12-24 11:53] LABS: LDL CHOLESTEROL 96 mg/dL (0-129)
[2017-12-24 11:56] LABS: % IRON SATURATION 15 (20-55); TOTAL IRON BINDING CAPACITY 521 ug/dL (250-450)
[2017-12-24] MEDS ORDERED: Levothyroxine 125 MCG TAB PO SCH (12:00)
[2017-12-24 12:54] LABS: FOLATE > 20.0 ng/mL
[2017-12-24 16:43] VITALS: RESP 20
--- NOTE | 2017-12-24 18:08 | CP.PCM.CON ---
History of Present Illness - History of Present Illness History of Present Illness: Reason for consultation: dry cough and neck swelling 67-year-old female presented to emergency room with low hemoglobin and complaining cough feeling tired and weak. Patient also complaining of dry cough for the past few days associated with neck swelling. also complaining of dyspnea on exertion. Denies fever chills, denies chest pain Review of Systems - Review of Systems All systems: reviewed and no additional remarkable complaints except (dry cough) Past Patient History - Past Medical History & Family History Past Medical History?: Yes - Past Social History Smoking Status: Heavy Smoker > 10 Cigarettes Daily - CARDIAC Hx Cardia Arrhythmia: Yes Hx Hypercholesterolemia: Yes Hx Hypertension: Yes Hx Peripheral Edema: Yes - PULMONARY Hx Asthma: Yes - NEUROLOGICAL Hx Neurological Disorder: Yes Other/Comment: PERIPHERAL NEUROPATHY - HEENT Hx HEENT Problems: Yes (GLASSES) - RENAL Hx Chronic Kidney Disease: No - ENDOCRINE/METABOLIC Hx Hypothyroidism: Yes - HEMATOLOGICAL/ONCOLOGICAL Hx Anemia: Yes - INTEGUMENTARY Hx Dermatological Problems: Yes Other/Comment: PRURITIS - MUSCULOSKELETAL/RHEUMATOLOGICAL Hx Rheumatoid Arthritis: Yes - GASTROINTESTINAL Hx Gall Bladder Disease: Yes - GENITOURINARY/GYNECOLOGICAL Hx Genitourinary Disorders: No - PSYCHIATRIC Hx Substance Use: No - SURGICAL HISTORY Hx Appendectomy: Yes - ANESTHESIA Hx Anesthesia: Yes Hx Anesthesia Reactions: No Hx Malignant Hyperthermia: No Meds Allergies/Adverse Reactions: Allergies Allergy/AdvReac Type Severity Reaction Status Date / Time No Known Allergies Allergy Verified 12/22/17 11:55 - Medications Medications: Current Medications Acetaminophen (Tylenol 325mg Tab) 650 mg PO Q6 PRN PRN Reason: Pain, severe (8-10) Last Admin: 12/23/17 20:24 Dose: 650 mg Albuterol Sulfate (Albuterol 0.042% Inhal Chiquita (1.25mg/3ml) Ud) 1.25 mg INH RQ8 [facility] Budesonide (Pulmicort Respules) 0.25 mg INH RQ12 [facility] Last Admin: 12/24/17 07:07 Dose: 0.25 mg Cilostazol (Pletal) 100 mg PO BID [facility] Last Admin: 12/24/17 17:16 Dose: 100 mg Cyanocobalamin (Vitamin B12 1000 Mcg/Ml Inj) 1,000 mcg IM DAILY [facility] Stop: 12/26/17 10:00 Last Admin: 12/24/17 10:36 Dose: 1,000 mcg Ferric Sodium Gluconate Complex (Ferrlecit) 125 mg IVPB DAILY [facility] Stop: 12/28/17 10:01 Last Admin: 12/24/17 10:37 Dose: 125 mg Fluticasone Propionate (Flonase) 2 spr NAILA DAILY [facility] Last Admin: 12/24/17 10:51 Dose: 2 spr Folic Acid (Folic Acid) 1 mg PO DAILY [facility] Last Admin: 12/24/17 10:32 Dose: 1 mg Gabapentin (Neurontin) 300 mg PO QID [facility] Last Admin: 12/24/17 17:16 Dose: 300 mg Hydrocortisone (Anusol-Hc) 0 gm MA BID [facility] Last Admin: 12/24/17 17:17 Dose: 1 applic Insulin Detemir (Levemir) 10 unit SC DAILY [facility] Last Admin: 12/24/17 10:36 Dose: 10 unit Insulin Human Regular (Novolin R) 0 unit SC ACHS [facility] PRN Reason: Protocol Last Admin: 12/24/17 17:11 Dose: 1 unit Levothyroxine Sodium (Synthroid) 125 mcg PO DAILY@0630 [facility] Last Admin: 12/24/17 12:07 Dose: Not Given Losartan Potassium (Cozaar) 100 mg PO DAILY [facility] Last Admin: 12/24/17 10:36 Dose: 100 mg Metformin HCl (Glucophage) 1,000 mg PO BIDCC [facility] Last Admin: 12/24/17 17:11 Dose: 1,000 mg Montelukast Sodium (Singulair) 10 mg PO HS [facility] Pantoprazole Sodium (Protonix Ec Tab) 40 mg PO DAILY [facility] Rosuvastatin Calcium (Crestor) 40 mg PO HS [facility] Ursodiol (Actigall) 300 mg PO TIDCC [facility] Last Admin: 12/24/17 17:10 Dose: 300 mg Physical Exam - Head Exam Head Exam: ATRAUMATIC, NORMOCEPHALIC - ENT Exam ENT Exam: Mucous Membranes Moist - Respiratory Exam Respiratory Exam: Rhonchi - Cardiovascular Exam Cardiovascular Exam: REGULAR RHYTHM - GI/Abdominal Exam GI & Abdominal Exam: Normal Bowel Sounds - Neurological Exam Neurological exam: Alert, Oriented x3 Results - Vital Signs Recent Vital Signs: Last Vital Signs Temp 98.1 F 12/24/17 17:48 Pulse 89 12/24/17 17:48 Resp 20 12/24/17 17:48 BP 114/60 12/24/17 17:48 Pulse Ox 96 12/24/17 17:48 - Labs Result Diagrams: 12/24/17 11:12 12/24/17 11:12 Labs: Laboratory Results - last 24 hr 12/22/17 12/23/17 12/23/17 12:33 11:22 21:28 WBC RBC Hgb Hct MCV MCH MCHC RDW Plt Count MPV PT INR Sodium Potassium Chloride Carbon Dioxide Anion Gap BUN Creatinine Est GFR ( Amer) Est GFR (Non-Af Amer) POC Glucose (mg/dL) 122 H 141 H Random Glucose Hemoglobin A1c Calcium Iron TIBC % Saturation Total Bilirubin AST ALT Alkaline Phosphatase Total Protein Albumin Globulin Albumin/Globulin Ratio Triglycerides Cholesterol LDL Cholesterol Direct HDL Cholesterol Vitamin B12 Folate TSH 3rd Generation Blood Type O POSITIVE Antibody Screen Negative 12/24/17 12/24/17 12/24/17 07:28 11:12 11:12 WBC RBC Hgb Hct MCV MCH MCHC RDW Plt Count MPV PT INR Sodium Potassium Chloride Carbon Dioxide Anion Gap BUN Creatinine Est GFR ( Amer) Est GFR (Non-Af Amer) POC Glucose (mg/dL) 106 Random Glucose Hemoglobin A1c Calcium Iron 76 TIBC 521 H % Saturation 15 L Total Bilirubin AST ALT Alkaline Phosphatase Total Protein Albumin Globulin Albumin/Globulin Ratio Triglycerides 140 Cholesterol 181 LDL Cholesterol Direct 96 HDL Cholesterol 48 Vitamin B12 Folate > 20.0 TSH 3rd Generation Blood Type Antibody Screen 12/24/17 12/24/17 12/24/17 11:12 11:12 11:12 WBC 7.9 RBC 3.83 Hgb 8.9 L D Hct 27.5 L MCV 71.7 L D MCH 23.2 L MCHC 32.3 L RDW 22.7 H Plt Count 405 H MPV 7.4 PT 12.0 INR 1.1 Sodium Potassium Chloride Carbon Dioxide Anion Gap BUN Creatinine Est GFR ( Amer) Est GFR (Non-Af Amer) POC Glucose (mg/dL) Random Glucose Hemoglobin A1c 7.4 H Calcium Iron TIBC % Saturation Total Bilirubin AST ALT Alkaline Phosphatase Total Protein Albumin Globulin Albumin/Globulin Ratio Triglycerides Cholesterol LDL Cholesterol Direct HDL Cholesterol Vitamin B12 Folate TSH 3rd Generation Blood Type Antibody Screen 12/24/17 12/24/17 12/24/17 11:12 11:24 16:24 WBC RBC Hgb Hct MCV MCH MCHC RDW Plt Count MPV PT INR Sodium 139 Potassium 4.1 Chloride 103 Carbon Dioxide 26 Anion Gap 15 BUN 3 L Creatinine 0.6 L Est GFR ( Amer) > 60 Est GFR (Non-Af Amer) > 60 POC Glucose (mg/dL) 168 H 153 H Random Glucose 136 H Hemoglobin A1c Calcium 9.0 Iron TIBC % Saturation Total Bilirubin 0.5 AST 47 H D ALT 24 Alkaline Phosphatase 74 Total Protein 7.0 Albumin 4.0 Globulin 3.0 Albumin/Globulin Ratio 1.4 Triglycerides Cholesterol LDL Cholesterol Direct HDL Cholesterol Vitamin B12 > 1000 H Folate TSH 3rd Generation 20.10 H Blood Type Antibody Screen Assessment & Plan (1) Cough Status: Acute Comment: chest x-ray and CT of the neck. Continue nebulizer treatment. GI workup. Hematology evaluation (2) Anemia Status: Acute
[2017-12-24] MEDS: Albuterol 0.042% Inhal Sol (1.25 mg/3 mL) UD INH SCH (19:36)
[2017-12-24] MEDS ORDERED: Vitamins A & D Oint UD Foilpak TOP PRN (22:47)
[2017-12-24 23:14] VITALS: O2SAT 98
[2017-12-25] MEDS: Albuterol 0.042% Inhal Sol (1.25 mg/3 mL) UD INH SCH ×2 (01:01→08:50)
--- NOTE | 2017-12-25 03:42 | PN ---
DATE: 12/24/2017 SUBJECTIVE: The patient was seen and examined at bedside on 12/24/2017, was getting blood workup done and after that she is supposed to get blood transfusion and is supposed to go for endoscopy, but complaining about cough, feeling tired and weak and swelling in the neck. No fever, no chills. No nausea or vomiting. No headache, no dizziness. PHYSICAL EXAMINATION: VITAL SIGNS: Temperature 98.1, pulse 89, respiratory rate 20, blood pressure 114/60, pulse oximetry 96. HEENT: Head normocephalic, atraumatic. Eyes, PERRLA. Extraocular muscles intact. Conjunctivae clear. Nose patent. Mucous membranes moist. NECK: Supple. No carotid bruit, JVD or thyromegaly. CHEST: Bilaterally symmetrical. HEART: S1, S2. positive. LUNGS: Clear to auscultation. ABDOMEN: Soft. Bowel sounds present. No organomegaly. EXTREMITIES: No edema, no cyanosis. NEUROLOGIC: The patient is awake, alert. Moving all 4 extremities. No focal deficit. LABORATORY DATA: White blood cells 7.9, hemoglobin 8.9, hematocrit 27.5, platelets 405. Sodium 139, potassium 4.1. BUN 3, creatinine glucose 136. MEDICATIONS: Tylenol, albuterol, Pletal, cyanocobalamin, iron, folic acid, gabapentin, insulin, losartan, metformin, Singulair, Protonix, Crestor. ASSESSMENT AND PLAN: Mrs. Steph Street is a 67 years old lady with anemia, status post blood transfusion, thrombocytosis, hyperglycemia, is coughing, chest x-ray and CAT scan of the neck ordered. Continued nebulizer treatment. TSH is 20.1, hypothyroidism. Esophagogastroduodenoscopy was done by Dr. Joe Oneil showed hiatal hernia and gastritis, multiple arteriovenous malformations, hemorrhoids. We will continue present treatment, Following up of H and H. Repeat labs. We will follow. Alisa Borja MD
[2017-12-25] MEDS ORDERED: Levothyroxine 150 MCG TAB PO SCH (06:30)
[2017-12-25 07:45] LABS: HEMOGLOBIN 8.4 g/dL (11.0-16.0); MEAN CELL VOLUME 73.3 fL (81.0-99.0); MEAN CORPUSCULAR HEMOGLOBIN 22.6 pg (27.0-31.0); MEAN CORPUSCULAR HGB CONC 30.9 g/dL (33.0-37.0); MEAN PLATELET VOLUME 7.5 fL (7.2-11.7); RBC 3.71 Mil/uL (3.80-5.20); RED CELL DISTRIBUTION WIDTH 23.7 % (11.5-14.5); WHITE BLOOD COUNT 11.5 K/uL (4.8-10.8)
[2017-12-25] MEDS: (Novolin R) Insulin Human Regular 100 units/ml vial SC SCH ×2 (07:51→12:48)
[2017-12-25] MEDS: Budesonide 0.25 mg/2 ml Inhal Susp UD INH SCH (08:50)
--- NOTE | 2017-12-25 09:09 | CP.PCM.PN ---
<Dee Dee Gentile - Last Filed: 12/25/17 09:10> Subjective - Date & Time of Evaluation Date of Evaluation: 12/25/17 Time of Evaluation: 07:00 - Subjective Subjective: GI Fellow PGY4 Progress Note Pt seen and evacuated at bedside, pt denies any abdominal pain, N/V. Tolerating diet. No rectal bleeding. No weakness or dizziness. ROS: A 12pt ROS was negative except as above. Objective - Vital Signs/Intake and Output Vital Signs (last 24 hours): Temp Pulse Resp BP Pulse Ox 97.2 F L 90 20 115/60 98 12/24/17 23:11 12/24/17 23:11 12/24/17 23:11 12/24/17 23:11 12/24/17 23:11 Intake and Output: 12/25/17 12/25/17 06:59 18:59 Intake Total 300 Output Total 500 Balance -200 - Medications Medications: Current Medications Acetaminophen (Tylenol 325mg Tab) 650 mg PO Q6 PRN PRN Reason: Pain, severe (8-10) Last Admin: 12/23/17 20:24 Dose: 650 mg Albuterol Sulfate (Albuterol 0.042% Inhal Chiquita (1.25mg/3ml) Ud) 1.25 mg INH RQ8 [facility] Last Admin: 12/25/17 01:01 Dose: Not Given Budesonide (Pulmicort Respules) 0.25 mg INH RQ12 [facility] Last Admin: 12/24/17 19:36 Dose: 0.25 mg Cilostazol (Pletal) 100 mg PO BID [facility] Last Admin: 12/24/17 17:16 Dose: 100 mg Cyanocobalamin (Vitamin B12 1000 Mcg/Ml Inj) 1,000 mcg IM DAILY [facility] Stop: 12/26/17 10:00 Last Admin: 12/24/17 10:36 Dose: 1,000 mcg Ferric Sodium Gluconate Complex (Ferrlecit) 125 mg IVPB DAILY [facility] Stop: 12/28/17 10:01 Last Admin: 12/24/17 10:37 Dose: 125 mg Fluticasone Propionate (Flonase) 2 spr NAILA DAILY [facility] Last Admin: 12/24/17 10:51 Dose: 2 spr Folic Acid (Folic Acid) 1 mg PO DAILY [facility] Last Admin: 12/24/17 10:32 Dose: 1 mg Gabapentin (Neurontin) 300 mg PO QID [facility] Last Admin: 12/24/17 21:45 Dose: 300 mg Hydrocortisone (Anusol-Hc) 0 gm AL BID [facility] Last Admin: 12/24/17 17:17 Dose: 1 applic Insulin Detemir (Levemir) 10 unit SC DAILY [facility] Last Admin: 12/24/17 10:36 Dose: 10 unit Insulin Human Regular (Novolin R) 0 unit SC ACHS [facility] PRN Reason: Protocol Last Admin: 12/25/17 07:51 Dose: Not Given Levothyroxine Sodium (Synthroid) 150 mcg PO DAILY@0630 [facility] Last Admin: 12/25/17 06:01 Dose: 150 mcg Losartan Potassium (Cozaar) 100 mg PO DAILY [facility] Last Admin: 12/24/17 10:36 Dose: 100 mg Metformin HCl (Glucophage) 1,[facility] Last Admin: 12/25/17 08:40 Dose: 1,000 mg Montelukast Sodium (Singulair) 10 mg PO HS [facility] Pantoprazole Sodium (Protonix Ec Tab) 40 mg PO DAILY [facility] Rosuvastatin Calcium (Crestor) 40 mg PO HS [facility] Ursodiol (Actigall) 300 mg PO TIDCC [facility] Last Admin: 12/25/17 08:40 Dose: 300 mg Vitamin A (Vitamin A & D Oint Ud Foilpak) 0.5 ea TOP Q4 PRN PRN Reason: dry lip Last Admin: 12/24/17 23:00 Dose: 0.5 ea - Labs Labs: 12/25/17 07:32 12/24/17 11:12 PT 12.0 SECONDS (9.7-12.2) 12/24/17 11:12 INR 1.1 12/24/17 11:12 APTT 34 SECONDS (21-34) 12/22/17 12:33 - Constitutional Appears: Non-toxic, No Acute Distress - Head Exam Head Exam: ATRAUMATIC, NORMAL INSPECTION, NORMOCEPHALIC - Eye Exam Eye Exam: EOMI, Normal appearance, PERRL Pupil Exam: PERRL - ENT Exam ENT Exam: Mucous Membranes Moist, Normal Exam - Neck Exam Neck Exam: Full ROM, Normal Inspection - Respiratory Exam Respiratory Exam: Clear to Ausculation Bilateral, NORMAL BREATHING PATTERN - Cardiovascular Exam Cardiovascular Exam: REGULAR RHYTHM, RRR, +S1, +S2 - GI/Abdominal Exam GI & Abdominal Exam: Soft, Normal Bowel Sounds. absent: Distended, Tenderness, Organomegaly - Rectal Exam Rectal Exam: Deferred - Extremities Exam Extremities Exam: Full ROM, Normal Inspection - Back Exam Back Exam: NORMAL INSPECTION - Neurological Exam Neurological Exam: Alert, Awake, Oriented x3 - Psychiatric Exam Psychiatric exam: Normal Affect, Normal Mood - Skin Skin Exam: Dry, Intact, Normal Color, Warm Assessment and Plan - Assessment and Plan (Free Text) Assessment: This is a 67yF with pmhx of Anemia, HTN, HLD, PAD on pletal and plavix presenting with anemia. 1. Acute Anemia, iron deficiency 2. PAD s/p angioplasty on antiplatelet therapy 3. Colonic AVMs s/p APC Plan: -Continue supportive care -Hgb 8.8 s/p 2U PRBCs -No active GI bleeding at this time -Monitor H/H and transfuse as needed -PPI -Diet as tolerated -s/p EGD/Colonoscopy with gastritis and ascending colonic AVMs s/p APC, internal hemorrhoids -Pt will need to followup outpt with her private GI physician at [facility] [place] -Carey to continue anti platelet therapy -Okay for discharge home today <Luis Carmichael - Last Filed: 12/25/17 09:18> Objective - Vital Signs/Intake and Output Vital Signs (last 24 hours): Temp Pulse Resp BP Pulse Ox 97.2 F L 90 20 115/60 98 12/24/17 23:11 12/24/17 23:11 12/24/17 23:11 12/24/17 23:11 12/24/17 23:11 Intake and Output: 12/25/17 12/25/17 06:59 18:59 Intake Total 300 Output Total 500 Balance -200 - Medications Medications: Current Medications Acetaminophen (Tylenol 325mg Tab) 650 mg PO Q6 PRN PRN Reason: Pain, severe (8-10) Last Admin: 12/23/17 20:24 Dose: 650 mg Albuterol Sulfate (Albuterol 0.042% Inhal Chiquita (1.25mg/3ml) Ud) 1.25 mg INH RQ8 [facility] Last Admin: 12/25/17 01:01 Dose: Not Given Budesonide (Pulmicort Respules) 0.25 mg INH RQ12 [facility] Last Admin: 12/24/17 19:36 Dose: 0.25 mg Cilostazol (Pletal) 100 mg PO BID [facility] Last Admin: 12/24/17 17:16 Dose: 100 mg Cyanocobalamin (Vitamin B12 1000 Mcg/Ml Inj) 1,000 mcg IM DAILY [facility] Stop: 12/26/17 10:00 Last Admin: 12/24/17 10:36 Dose: 1,000 mcg Ferric Sodium Gluconate Complex (Ferrlecit) 125 mg IVPB DAILY [facility] Stop: 12/28/17 10:01 Last Admin: 12/24/17 10:37 Dose: 125 mg Fluticasone Propionate (Flonase) 2 spr NAILA DAILY [facility] Last Admin: 12/24/17 10:51 Dose: 2 spr Folic Acid (Folic Acid) 1 mg PO DAILY [facility] Last Admin: 12/24/17 10:32 Dose: 1 mg Gabapentin (Neurontin) 300 mg PO QID [facility] Last Admin: 12/24/17 21:45 Dose: 300 mg Hydrocortisone (Anusol-Hc) 0 gm AL BID [facility] Last Admin: 12/24/17 17:17 Dose: 1 applic Insulin Detemir (Levemir) 10 unit SC DAILY [facility] Last Admin: 12/24/17 10:36 Dose: 10 unit Insulin Human Regular (Novolin R) 0 unit SC ACHS [facility] PRN Reason: Protocol Last Admin: 12/25/17 07:51 Dose: Not Given Levothyroxine Sodium (Synthroid) 150 mcg PO DAILY@0630 [facility] Last Admin: 12/25/17 06:01 Dose: 150 mcg Losartan Potassium (Cozaar) 100 mg PO DAILY [facility] Last Admin: 12/24/17 10:36 Dose: 100 mg Metformin HCl (Glucophage) 1,000 mg PO BIDCC [facility] Last Admin: 12/25/17 08:40 Dose: 1,000 mg Montelukast Sodium (Singulair) 10 mg PO HS [facility] Pantoprazole Sodium (Protonix Ec Tab) 40 mg PO DAILY [facility] Rosuvastatin Calcium (Crestor) 40 mg PO HS [facility] Ursodiol (Actigall) 300 mg PO TIDCC [facility] Last Admin: 12/25/17 08:40 Dose: 300 mg Vitamin A (Vitamin A & D Oint Ud Foilpak) 0.5 ea TOP Q4 PRN PRN Reason: dry lip Last Admin: 12/24/17 23:00 Dose: 0.5 ea - Labs Labs: 12/25/17 07:32 12/24/17 11:12 PT 12.0 SECONDS (9.7-12.2) 12/24/17 11:12 INR 1.1 12/24/17 11:12 APTT 34 SECONDS (21-34) 12/22/17 12:33 Attending/Attestation - Attestation I have personally seen and examined this patient.: Yes I have fully participated in the care of the patient.: Yes I have reviewed all pertinent clinical information, including history, physical exam and plan: Yes Notes (Text): 12/25/17 09:15 I have seen and examined patient with GI fellow. No acute events overnight, she is seen resting in bed comfortably. She endorses lingering non-productive cough but otherwise denies abdominal pain, nausea, vomiting, rectal bleeding. Tolerating PO diet without difficulty. Iron deficiency anemia - s/p EGD and colonoscopy showing gastritis, ascending colon AVM's s/p endoscopic thermal therapy HTN PVD - Diet as tolerated - H/H stable s/p PRBC transfusion, continue to monitor and transfuse as necessary - Continue with PPI therapy - Follow up pulmonary recommendations regarding ongoing cough - From GI perspective ok to discharge home with subsequent outpatient follow up with primary GI physician (Dr. Alves at [facility] [place]). Will sign off case, please reconsult as necessary, thank you.
--- NOTE | 2017-12-25 09:24 | RAD ---
PROCEDURE: CHEST RADIOGRAPH, 1 VIEW HISTORY: Cough COMPARISON: Comparison chest dated 08/06/2014 FINDINGS: LUNGS: Mild bibasilar atelectasis PLEURA: No pneumothorax or pleural fluid seen. CARDIOVASCULAR: Heart size within range of normal. OSSEOUS STRUCTURES: No significant abnormalities. VISUALIZED UPPER ABDOMEN: Normal. OTHER FINDINGS: None. IMPRESSION: No active disease.
[2017-12-25] MEDS: Ferric Sodium Gluconat Complex 62.5 mg/5 ml Vial IVPB SCH (09:51)
[2017-12-25] MEDS: Insulin Detemir 100 units/ml Vial (Levemir) SC SCH (09:51)
[2017-12-25] MEDS: Cilostazol 100 mg Tab UD PO SCH (09:52)
[2017-12-25 09:53] VITALS: BP 130/67; PULSE 84; TEMP 97.4
[2017-12-25] MEDS: Fluticasone Nasal 50 mcg/Spray NAS SCH ×2 (09:53→09:56)
[2017-12-25] MEDS: Hydrocortisone 2.5% Rectal Cream(30 gm) PR SCH (09:57)
[2017-12-25] MEDS ORDERED: Pantoprazole 40 mg EC Tab PO SCH (10:00)
--- NOTE | 2017-12-25 12:09 | CARD ---
APPROVED REPORT EKG Measurement Heart [id number] <Conclusion> Normal sinus rhythm Normal ECG
--- NOTE | 2017-12-25 15:06 | CP.PCM.PN ---
Subjective - Date & Time of Evaluation Date of Evaluation: 12/25/17 Time of Evaluation: 15:05 - Subjective Subjective: -FOLLOW UP WITH DRA. DAVILA IN THE OFFICE WITHIN 1 WEEK---CALL THE OFFICE TO MAKE AN APPOINTMENT. -FOLLOW UP WITH DR. RUBIN OR DR. VERDUZCO (STOMACH DOCTOR) IN THE OFFICE WITHIN 1- 2 WEEKS---CALL THE OFFICE TO MAKE AN APPOINTMENT. -FOLLOW UP WITH YOUR ACADEMIC AFFAIRS DIRECTOR FOR A SLEEP STUDY TEST TO SEE IF YOU QUALIFY FOR A SLEEPING MACHINE TO USE AT BEDTIME. -FOLLOW UP WITH DR. NEWTON (SPECIALIST FOR EARS, NOSE, THROAT; CALL TO SEE IF HE ACCEPTS YOUR INSURANCE) FOR FURTHER EVALUATION OF THE LUMP ON YOUR NECK. -YOU CAN ALSO MAKE AN APPOINTMENT TO SEE AN ORAL SURGEON. HERE ARE SOME LOCATIONS TO CONTACT: [facility] ([address], [address]LO[address], [place]) [phone]. [facility] ([address] [place] [address]) [phone]. [facility] ([address] [place] [address]) [phone]. -COUGH MEDICINE HAS BEEN PRESCRIBED TO YOU; PICK IT UP AT YOUR PHARMACY. -FOR MEMORY, YOU MAY BUY GINKO BILOBA OVER THE COUNTER--DISCUSS WITH YOUR DOCTOR IF IT IS OKAY TO TAKE WITH YOUR OTHER MEDICINE. -IF YOU HAVE ANY FURTHER QUESTIONS, CONTACT YOUR DOCTOR Objective - Vital Signs/Intake and Output Vital Signs (last 24 hours): Temp Pulse Resp BP Pulse Ox 97.4 F L 84 20 130/67 98 12/25/17 08:00 12/25/17 08:00 12/25/17 08:00 12/25/17 08:00 12/25/17 08:00 Intake and Output: 12/25/17 12/25/17 06:59 18:59 Intake Total 300 600 Output Total 500 Balance -200 600 - Medications Medications: Current Medications Acetaminophen (Tylenol 325mg Tab) 650 mg PO Q6 PRN PRN Reason: Pain, severe (8-10) Last Admin: 12/23/17 20:24 Dose: 650 mg Albuterol Sulfate (Albuterol 0.042% Inhal Chiquita (1.25mg/3ml) Ud) 1.25 mg INH RQ8 SLIM Last Admin: 06/19/18 08:50 Dose: Not Given Budesonide (Pulmicort Respules) 0.25 mg INH RQ12 PENDING SALE TO [facility] Last Admin: 12/25/17 08:50 Dose: Not Given Cilostazol (Pletal) 100 mg PO BID PENDING SALE TO [facility] Last Admin: 12/25/17 09:52 Dose: 100 mg Cyanocobalamin (Vitamin B12 1000 Mcg/Ml Inj) 1,000 mcg IM DAILY PENDING SALE TO [facility] Stop: 12/26/17 10:00 Last Admin: 12/25/17 10:53 Dose: 1,000 mcg Ferric Sodium Gluconate Complex (Ferrlecit) 125 mg IVPB DAILY PENDING SALE TO [facility] Stop: 12/28/17 10:01 Last Admin: 12/25/17 09:51 Dose: 125 mg Fluticasone Propionate (Flonase) 2 spr NAILA DAILY PENDING SALE TO [facility] Last Admin: 12/25/17 09:56 Dose: 2 spr Folic Acid (Folic Acid) 1 mg PO DAILY PENDING SALE TO [facility] Last Admin: 12/25/17 09:52 Dose: 1 mg Gabapentin (Neurontin) 300 mg PO QID PENDING SALE TO [facility] Last Admin: 12/25/17 13:45 Dose: 300 mg Hydrocortisone (Anusol-Hc) 0 gm IL BID PENDING SALE [facility] Last Admin: 12/25/17 09:57 Dose: 1 applic Insulin Detemir (Levemir) 10 unit SC DAILY PENDING SALE [facility] Last Admin: 12/25/17 09:51 Dose: 10 unit Insulin Human Regular (Novolin R) 0 unit SC ACHS PENDING SALE [facility] PRN Reason: Protocol Last Admin: 12/25/17 12:48 Dose: 1 unit Levothyroxine Sodium (Synthroid) 150 mcg PO DAILY@0630 PENDING SALE TO [facility] Last Admin: 12/25/17 06:01 Dose: 150 mcg Losartan Potassium (Cozaar) 100 mg PO DAILY PENDING SALE [facility] Last Admin: 12/25/17 09:52 Dose: 100 mg Metformin HCl (Glucophage) 1,000 mg PO BIDCC PENDING SALE TO [facility] Last Admin: 12/25/17 08:40 Dose: 1,000 mg Montelukast Sodium (Singulair) 10 mg PO HS PENDING SALE TO [facility] Pantoprazole Sodium (Protonix Ec Tab) 40 mg PO DAILY PENDING SALE [facility] Last Admin: 12/25/17 09:52 Dose: 40 mg Rosuvastatin Calcium (Crestor) 40 mg PO HS PENDING SALE TO [facility] Ursodiol (Actigall) 300 mg PO TIDCC PENDING SALE TO [facility] Last Admin: 12/25/17 12:48 Dose: 300 mg Vitamin A (Vitamin A & D Oint Ud Foilpak) 0.5 ea TOP Q4 PRN PRN Reason: dry lip Last Admin: 12/24/17 23:00 Dose: 0.5 ea - Labs Labs: 12/25/17 07:32 12/24/17 11:12 PT 12.0 SECONDS (9.7-12.2) 12/24/17 11:12 INR 1.1 12/24/17 11:12 APTT 34 SECONDS (21-34) 12/22/17 12:33
== END 2017-12-25 15:58 | disposition home or self-care (01) | DRG 812 ==
LOC: C.ER 11:46 → C.9E 13:30 → C.5S 15:15 → OBSVTOIN 12-24 22:03
PROVIDERS: ADMIT Internal Medicine; ATTEND Internal Medicine
PROC: 30233N1 Transfusion of Nonautologous Red Blood Cells into Peripheral Vein, Percutaneous Approach (ICD-10-PCS; 2017-12-24)
PROC: 0D5K8ZZ Destruction of Ascending Colon, Via Natural or Artificial Opening Endoscopic (ICD-10-PCS; principal; 2017-12-24 08:01)
PROC: 0DJ08ZZ Inspection of Upper Intestinal Tract, Via Natural or Artificial Opening Endoscopic (ICD-10-PCS; 2017-12-24 08:01)
DX: D50.9 Iron deficiency anemia, unspecified (principal); K55.20 Angiodysplasia of colon without hemorrhage; K29.70 Gastritis, unspecified, without bleeding; K44.9 Diaphragmatic hernia without obstruction or gangrene; K64.8 Other hemorrhoids; K59.00 Constipation, unspecified; I10 Essential (primary) hypertension; E03.9 Hypothyroidism, unspecified; G62.9 Polyneuropathy, unspecified; I73.9 Peripheral vascular disease, unspecified; J45.909 Unspecified asthma, uncomplicated; M06.9 Rheumatoid arthritis, unspecified; E78.00 Pure hypercholesterolemia, unspecified; E78.5 Hyperlipidemia, unspecified; Z87.891 Personal history of nicotine dependence; Z86.010 Personal history of colon polyps; Z90.49 Acquired absence of other specified parts of digestive tract

== ENCOUNTER 2018-10-22 10:43 | Outpatient (CLI) | payer MEDICARE, MEDICAID | END 2018-10-22 10:44 | disposition home or self-care (01) | LOC: C.MAMMO 10:43 | DX: Z12.31 Encounter for screening mammogram for malignant neoplasm of breast (principal) ==